=== PATIENT | male | born 1955 | race Caucasian/White ===

== ENCOUNTER 2018-04-26 22:39 | Observation (INO) ==
[2018-04-26] MEDS ORDERED: Tdap (Boostrix) Vaccine 0.5 ML SYRINGE IM ONE (22:59)
--- NOTE | 2018-04-26 23:11 | Emergency Department Note ---
Disposition Clinical Impression: Fall, Closed head injury, Slurred speech Disposition: Admitted As Inpatient Condition: Good General Adult HPI - General Chief complaint: ED Neuro Symptoms/Deficit Stated complaint: Lac To head, Possible LOC Time Seen by Provider: 04/26/18 22:50 Source: patient Limitations: altered mental status - History of Present Illness Pain Scale: 0 - Related Data Home Medications Medication Instructions Recorded Confirmed Allopurinol [Zyloprim 100 MG] 100 mg PO DAILY 12/08/15 12/08/15 Aspirin 325 mg PO DAILY 12/08/15 12/08/15 Atorvastatin [Lipitor] 40 mg PO HS 12/08/15 12/08/15 Colchicine [Colcrys] 1 - 2 tab PO DAILY 12/08/15 12/08/15 Flaxseed Oil [Irving-3 Flaxseed Oil] 100 mg PO DAILY 12/08/15 12/08/15 Mometasone Furoate [Elocon] 15 gm TP BID 12/08/15 12/08/15 Niacin [Niacor] 500 mg PO DAILY 12/08/15 12/08/15 PredniSONE [Deltasone] 20 mg PO DAILY 12/08/15 12/08/15 Tramadol HCl [Tramadol HCl ER] 100 mg PO DAILY 12/08/15 12/08/15 Allergies Allergy/AdvReac Type Severity Reaction Status Date / Time cinnamon [Cinnamon] AdvReac Rash Verified 04/27/18 00:39 Hydroxychloroquine AdvReac Rash Verified 04/27/18 00:39 [From Plaquenil] Past Medical History - Past Medical History Medical history: Reports: hyperlipidemia Psychiatric history: Reports: no psych history - Social History Smoking Status: Current every day smoker Smokeless Tobacco Status: No Alcohol use: Reports: none Drug use: Reports: none Physical Exam - General Limitations: altered mental status General appearance: alert Course Vital Signs Temperature 98.6 F 04/26/18 22:44 Pulse Rate 73 04/26/18 22:44 Respiratory Rate 20 04/26/18 22:44 Blood Pressure 113/65 04/26/18 22:44 O2 Sat by Pulse Oximetry 96 04/26/18 22:44 Temperature 97.5 F L 04/27/18 07:19 Pulse Rate 72 04/27/18 07:19 Respiratory Rate 15 04/27/18 07:19 Blood Pressure 147/75 04/27/18 07:19 O2 Sat by Pulse Oximetry 97 04/27/18 07:19 Oxygen Delivery Oxygen Delivery Room Air Medical Decision Making - Lab Data Result diagrams: 04/26/18 22:51 04/26/18 22:51 Lab Results 04/26/18 04/26/18 04/26/18 Range/Units 22:51 22:51 22:51 WBC 15.5 H (4.3-11.1) K/mcL RBC 4.27 (4.19-5.50) M/mcL Hgb 13.9 (12.9-16.9) g/dL Hct 41.6 (37.5-50.1) % MCV 97.4 (83.0-100.0) fL MCH 32.6 (28.0-33.3) pg MCHC 33.4 (31.6-35.5) g/dL RDW 14.9 H (11.5-14.5) % Plt Count 265 (140-400) K/mcL MPV 10.5 (9.4-12.4) fL Immature Gran % 0.4 (0-4) % Seg Neutrophils % 60.7 % Lymphocytes % 30.3 % Monocytes % 7.7 % Eosinophils % 0.5 % Basophils % 0.4 % Neutrophils # 9.4 H (1.6-8.9) K/mcL Lymphocytes # 4.7 H (0.6-4.6) K/mcL Monocytes # 1.2 (0.0-1.3) K/mcL Eosinophils # 0.1 (0.0-0.6) K/mcL Basophils # 0.1 (0.0-0.2) K/mcL PT 11.2 (9.4-12.1) Seconds INR 1.0 APTT 30.6 (26.0-36.0) Seconds Sodium 137 (136-145) mEq/L Potassium 3.4 L (3.5-5.1) mEq/L Chloride 106 (98-107) mEq/L Carbon Dioxide 21 L (23-29) mEq/L BUN 14 (8-23) mg/dL Creatinine 0.93 (0.70-1.30) mg/dL Est GFR ( Amer) > 60 (> 60) Est GFR (Non-Af Amer) > 60 (> 60) BUN/Creatinine Ratio 15 (6-26) Glucose 126 H (70-105) mg/dL POC Glucose (70-99) mg/dL Calculated Osmolality 286 (280-300) Calcium 8.6 (8.6-10.3) mg/dL Troponin I < 0.03 (< 0.04) ng/mL Ethyl Alcohol (Less than 10) mg/dL 04/26/18 04/26/18 Range/Units 22:52 23:06 WBC (4.3-11.1) K/mcL RBC (4.19-5.50) M/mcL Hgb (12.9-16.9) g/dL Hct (37.5-50.1) % MCV (83.0-100.0) fL MCH (28.0-33.3) pg MCHC (31.6-35.5) g/dL RDW (11.5-14.5) % Plt Count (140-400) K/mcL MPV (9.4-12.4) fL Immature Gran % (0-4) % Seg Neutrophils % % Lymphocytes % % Monocytes % % Eosinophils % % Basophils % % Neutrophils # (1.6-8.9) K/mcL Lymphocytes # (0.6-4.6) K/mcL Monocytes # (0.0-1.3) K/mcL Eosinophils # (0.0-0.6) K/mcL Basophils # (0.0-0.2) K/mcL PT (9.4-12.1) Seconds INR APTT (26.0-36.0) Seconds Sodium (136-145) mEq/L Potassium (3.5-5.1) mEq/L Chloride (98-107) mEq/L Carbon Dioxide (23-29) mEq/L BUN (8-23) mg/dL Creatinine (0.70-1.30) mg/dL Est GFR ( Amer) (> 60) Est GFR (Non-Af Amer) (> 60) BUN/Creatinine Ratio (6-26) Glucose (70-105) mg/dL POC Glucose 115 H (70-99) mg/dL Calculated Osmolality (280-300) Calcium (8.6-10.3) mg/dL Troponin I (< 0.04) ng/mL Ethyl Alcohol 292 H (Less than 10) mg/dL Attestation Statement - Attestation Attestation: I examined this patient and my medical decision-making was reviewed with the Resident Physician. I agree with the documented findings, disposition and treatment plan as described except to the extent set forth below. [id number] time provided Patient arrives with altered mental status. He admits to drinking alcohol tonight. He sustained a mechanical fall. Stroke alert was activated upon arrival
[2018-04-26 23:15] LABS: Basophils # 0.1 K/mcL (0.0-0.2); Basophils % 0.4 %; Eosinophils # 0.1 K/mcL (0.0-0.6); Eosinophils % 0.5 %; Hematocrit 41.6 % (37.5-50.1); Hemoglobin 13.9 g/dL (12.9-16.9); Immature Granulocytes % 0.4 % (0-4); Lymphocytes # 4.7 K/mcL (0.6-4.6); Lymphocytes % 30.3 %; Mean Corpuscular HGB Conc 33.4 g/dL (31.6-35.5); Mean Corpuscular Hemoglobin 32.6 pg (28.0-33.3); Mean Corpuscular Volume 97.4 fL (83.0-100.0); Mean Platelet Volume 10.5 fL (9.4-12.4); Monocytes # 1.2 K/mcL (0.0-1.3); Monocytes % 7.7 %; Neutrophils # 9.4 K/mcL (1.6-8.9); Platelet Count 265 K/mcL (140-400); Red Blood Count 4.27 M/mcL (4.19-5.50); Red Cell Distribution Width 14.9 % (11.5-14.5); Segmented Neutrophils % 60.7 %
[2018-04-26 23:21] LABS: Prothrombin Time 11.2 Seconds (9.4-12.1)
[2018-04-26 23:23] LABS: Activated Partial Thrombo Time 30.6 Seconds (26.0-36.0)
[2018-04-26] MEDS ORDERED: Isovue-370 500 ML INFUS..BTL IV ONE (23:23)
--- NOTE | 2018-04-26 23:23 | Emergency Department Note ---
Disposition Clinical Impression: Slurred speech Fall Qualifiers: Encounter type: initial encounter Qualified Code(s): W19.XXXA - Unspecified fall, initial encounter Closed head injury Qualifiers: Encounter type: initial encounter Qualified Code(s): S09.90XA - Unspecified injury of head, initial encounter Disposition: Admitted As Inpatient Condition: Good Referrals: Katya Reed MD [Non-Partnered Physician] - Forms: ED Satisfaction Letter Time of Disposition: 01:51 General Adult HPI - General Stated complaint: Lac To head, Possible LOC Time Seen by Provider: 04/26/18 22:50 Nursing Notes Reviewed: Yes Vital Signs Reviewed: Yes - History of Present Illness HPI Narrative: Male patient presenting to the emergency department by EMS. He was at home with his family consuming about 6-7 beers whenever he went inside and had a fall with a syncopal event afterwards. The son found him in the floor. States he was hard to arouse. He has been confused ever since. Slurring his speech. They state that her several minutes were they could not get him to respond however he did have a pulse he was breathing normally. They state that he did have some mild circumflex speech prior to this fall. However currently they state that the left side of his face does appear to be more droopy than the right. He has good nasolabial folds bilaterally. The patient knows his name however he is asking questions repetitively. He does not appear to be in any distress at this time. He does have a laceration to the left occipital region. No other signs of trauma to his body. Pupils are equal and reactive. He is able to follow my finger appropriately. Has good finger to nose. Cranial nerves II through XII are intact. He has good motion of all 4 extremities. The only neurodeficit that I can appreciate is he does have some slurred speech and repetitive questioning. Patient does smell of alcohol at this time. She will alert was called. Patient was sent to CT and basic labs were performed. - Related Data Home Medications Medication Instructions Recorded Confirmed Allopurinol [Zyloprim 100 MG] 100 mg PO DAILY 12/08/15 12/08/15 Aspirin 325 mg PO DAILY 12/08/15 12/08/15 Atorvastatin [Lipitor] 40 mg PO HS 12/08/15 12/08/15 Colchicine [Colcrys] 1 - 2 tab PO DAILY 12/08/15 12/08/15 Flaxseed Oil [Muse-3 Flaxseed Oil] 100 mg PO DAILY 12/08/15 12/08/15 Mometasone Furoate [Elocon] 15 gm TP BID 12/08/15 12/08/15 Niacin [Niacor] 500 mg PO DAILY 12/08/15 12/08/15 PredniSONE [Deltasone] 20 mg PO DAILY 12/08/15 12/08/15 Tramadol HCl [Tramadol HCl ER] 100 mg PO DAILY 12/08/15 12/08/15 Allergies Allergy/AdvReac Type Severity Reaction Status Date / Time cinnamon [Cinnamon] AdvReac Rash Verified 04/27/18 00:39 Hydroxychloroquine AdvReac Rash Verified 04/27/18 00:39 [From Plaquenil] Limitations: ROS unobtainable due to patients medical condition Past Medical History - Past Medical History Attestation: Yes The following information was validated with the patient. Source: patient Psychiatric history: Reports: no psych history - Social History Smoking Status: Never smoker Smokeless Tobacco Status: No Alcohol use: Reports: none Drug use: Reports: none Physical Exam - General Limitations: altered mental status (Added of questioning.) General appearance: alert, in no apparent distress - Head Head exam: normocephalic, normal inspection, other (Small hematoma to the right posterior aspect of his head. Overlying abrasion.) - Eye Eye exam: Present: normal appearance, PERRL, EOMI - ENT ENT exam: normal exam, normal oropharynx, mucous membranes moist - Neck Neck exam: Present: normal inspection, full ROM, trachea midline - Chest Chest inspection: Present: normal inspection, symmetric chest wall rise - Respiratory Respiratory exam: Present: normal lung sounds bilaterally. Absent: respiratory distress, accessory muscle use - Cardiovascular Cardiovascular exam: Present: regular rate, normal rhythm, normal heart sounds - Abdominal Exam Abdominal exam: Present: soft, Non-Tender. Absent: tenderness, distention, guarding, rebound, rigidity, organomegaly, Serrano's sign, Rovsing's sign, tenderness at McBurney's Point - Extremities Exam Extremities exam: Present: normal inspection, full ROM, other (No extremity weakness.). Absent: tenderness, pedal edema - Expanded Lower Extremity Exam Hip/Pelvis exam: Present: normal inspection, full ROM - Back Exam Back exam: Present: normal inspection, full ROM. Absent: tenderness - Neurological Exam Neurological exam: Present: alert, other (Somewhat confused. Does have repetitive questioning.) - Psychiatric Psychiatric exam: Present: normal affect, normal mood - Skin Skin exam: Present: warm, dry, intact, normal color. Absent: rash, cyanosis Course Course Narrative: Patient does have slurred speech. No focal deficits to his extremity. Has good nasolabial folds and forehead creases. However the patient's family is concerned that the left side of his face could be drooping more than normal. CT of his head was performed with no signs of acute infarct or bleeding. CTA of his head and neck were not concerning for immediate stenosis issue. Patient is still mildly confused. His alcohol level is greater than 250. Patient returned from CTA of his head and neck and was more aware of his surroundings. He was alert and oriented 3 at that time. He denied any midline tenderness to cervical spine. He has no pain on motion of his neck. Cervical spine images were negative. C-collar was removed at that time. We will admit patient to the hospital for further neuro evaluation. Patient and family are agreeable to this. Vital Signs Temperature 98.6 F 04/26/18 22:44 Pulse Rate 73 04/26/18 22:44 Respiratory Rate 20 04/26/18 22:44 Blood Pressure 113/65 04/26/18 22:44 O2 Sat by Pulse Oximetry 96 04/26/18 22:44 Temperature 98.6 F 04/26/18 23:00 Pulse Rate 78 04/26/18 23:30 Respiratory Rate 19 04/26/18 23:30 Blood Pressure 126/72 04/26/18 23:30 O2 Sat by Pulse Oximetry 98 04/26/18 23:30 Oxygen Delivery Oxygen Delivery Room Air Medical Decision Making - Medical Records Medical records reviewed: Yes I reviewed the patient's medical records. - Lab Data Lab results reviewed: Yes I reviewed the patient's lab results. Result diagrams: 04/26/18 22:51 04/26/18 22:51 Lab Results 04/26/18 04/26/18 04/26/18 Range/Units 22:51 22:51 22:51 WBC 15.5 H (4.3-11.1) K/mcL RBC 4.27 (4.19-5.50) M/mcL Hgb 13.9 (12.9-16.9) g/dL Hct 41.6 (37.5-50.1) % MCV 97.4 (83.0-100.0) fL MCH 32.6 (28.0-33.3) pg MCHC 33.4 (31.6-35.5) g/dL RDW 14.9 H (11.5-14.5) % Plt Count 265 (140-400) K/mcL MPV 10.5 (9.4-12.4) fL Immature Gran % 0.4 (0-4) % Seg Neutrophils % 60.7 % Lymphocytes % 30.3 % Monocytes % 7.7 % Eosinophils % 0.5 % Basophils % 0.4 % Neutrophils # 9.4 H (1.6-8.9) K/mcL Lymphocytes # 4.7 H (0.6-4.6) K/mcL Monocytes # 1.2 (0.0-1.3) K/mcL Eosinophils # 0.1 (0.0-0.6) K/mcL Basophils # 0.1 (0.0-0.2) K/mcL PT 11.2 (9.4-12.1) Seconds INR 1.0 APTT 30.6 (26.0-36.0) Seconds Sodium 137 (136-145) mEq/L Potassium 3.4 L (3.5-5.1) mEq/L Chloride 106 (98-107) mEq/L Carbon Dioxide 21 L (23-29) mEq/L BUN 14 (8-23) mg/dL Creatinine 0.93 (0.70-1.30) mg/dL Est GFR ( Amer) > 60 (> 60) Est GFR (Non-Af Amer) > 60 (> 60) BUN/Creatinine Ratio 15 (6-26) Glucose 126 H (70-105) mg/dL POC Glucose (70-99) mg/dL Calculated Osmolality 286 (280-300) Calcium 8.6 (8.6-10.3) mg/dL Troponin I < 0.03 (< 0.04) ng/mL Ethyl Alcohol (Less than 10) mg/dL 04/26/18 04/26/18 Range/Units 22:52 23:06 WBC (4.3-11.1) K/mcL RBC (4.19-5.50) M/mcL Hgb (12.9-16.9) g/dL Hct (37.5-50.1) % MCV (83.0-100.0) fL MCH (28.0-33.3) pg MCHC (31.6-35.5) g/dL RDW (11.5-14.5) % Plt Count (140-400) K/mcL MPV (9.4-12.4) fL Immature Gran % (0-4) % Seg Neutrophils % % Lymphocytes % % Monocytes % % Eosinophils % % Basophils % % Neutrophils # (1.6-8.9) K/mcL Lymphocytes # (0.6-4.6) K/mcL Monocytes # (0.0-1.3) K/mcL Eosinophils # (0.0-0.6) K/mcL Basophils # (0.0-0.2) K/mcL PT (9.4-12.1) Seconds INR APTT (26.0-36.0) Seconds Sodium (136-145) mEq/L Potassium (3.5-5.1) mEq/L Chloride (98-107) mEq/L Carbon Dioxide (23-29) mEq/L BUN (8-23) mg/dL Creatinine (0.70-1.30) mg/dL Est GFR ( Amer) (> 60) Est GFR (Non-Af Amer) (> 60) BUN/Creatinine Ratio (6-26) Glucose (70-105) mg/dL POC Glucose 115 H (70-99) mg/dL Calculated Osmolality (280-300) Calcium (8.6-10.3) mg/dL Troponin I (< 0.04) ng/mL Ethyl Alcohol 292 H (Less than 10) mg/dL - Radiology Data Radiology results reviewed: Yes I reviewed the patient's radiology results. Head CT 04/26/18 22:51 IMPRESSION: No acute intracranial abnormality. Chronic left maxillary sinusitis. Findings were discussed with Dr. Toscano At 11:14 pm on 04/26/2018. D/ / 04/26/2018 23:19:28 Bridger Woody / rolando Interpreting Provider: Bridger Woody - EKG Data EKG #1 EKG attestation: Yes I reviewed and interpreted this EKG. EKG results narrative: Normal sinus rhythm at a rate of 75. CO interval is 156. Respirations 110. QT is 384. QTC is 429. No signs of acute ischemia. No significant change from previous EKG dated 11/25/2015.
[2018-04-26 23:37] LABS: BUN/Creatinine Ratio 15 (6-26); Blood Urea Nitrogen 14 mg/dL (8-23); Calcium 8.6 mg/dL (8.6-10.3); Carbon Dioxide 21 mEq/L (23-29); Chloride 106 mEq/L (98-107); Glucose 126 mg/dL (70-105); Osmolality,Calculated 286 (280-300); Potassium 3.4 mEq/L (3.5-5.1); Sodium 137 mEq/L (136-145); Troponin I < 0.03 ng/mL (< 0.04); eGFR For Non-African Americans > 60 (> 60)
[2018-04-27] MEDS ORDERED: Lidocaine/EPI 1:100k 1% 30 ML VIAL INFILT ONE (00:39)
[2018-04-27] MEDS ORDERED: Naloxone 0.4 MG/ML INJ IVP PRN (02:25)
[2018-04-27] MEDS ORDERED: 0.9 % Sodium Chloride 1,000 ML IVC SCH (02:30)
[2018-04-27] MEDS: *HR* Heparin 5,000 UNIT/ML VIAL SQ SCH ×2 (05:37→13:07)
--- NOTE | 2018-04-27 06:17 | Internal Med History&Physical ---
Date of Encounter: 04/28/18 Time of Encounter: 06:02 Internal Medicine - H&P: HPI Chief complaint: Syncope History of present illness: Mr. Espinoza is a 62 year old male with a past medical history of coronary artery disease status post CABG x2 in 2011, hyperlipidemia, arthritis and recent surgery on his left ear who presents after a unwitnessed syncopal episode. During my initial assessment the patient was alert and oriented 3 however does not recall much of the events shortly before his syncopal episode. Patient last recalls having a barbecue at home with his family. Remainder of the history was obtained from ED records. Per son, patient was found on the floor, difficult to arouse and has since been confused. Family noted slurred speech and left-sided facial droop more than the right. It was also noted to be repetitively asking the same questions. It is reported the patient had consumed 6-7 beers prior to the event. Initial assessment in the ED was negative for any focal neurological deficits. He was noticed to have a strong smell of alcohol which was confirmed when I saw the patient. CTA of the head and neck were performed which were unremarkable. Of note, the patient does endorse a previous syncopal episode approximately a year ago and did have a implantable loop recorder placed which is currently still in place in the left anterior chest wall. Patient also reports a recent bout of diarrhea for the past 2 weeks which he recently improved in the past few days. He denies any fever, chills, nausea, vomiting, abdominal pain or shortness of breath. Laboratory findings significant for a mild leukocytosis of 15. Normal troponin and EKG shows no significant changes from previous EKG. Past Med Surg Social Fam HX - Past Medical History Medical history: hyperlipidemia Psychiatric history: no psych history - Past Surgical History Additional surgical history: ear - Social History Smoking Status: Never smoker Smokeless Tobacco Status: No Alcohol use: none Drug use: none Internal Medicine - H&P: Meds Allopurinol [Zyloprim 100 MG] 100 mg PO DAILY 04/27/18 [History] Allopurinol [Zyloprim 300 MG] 300 mg PO DAILY 04/27/18 [History] Aspirin [Lo-Dose Aspirin EC] 81 mg PO DAILY 04/27/18 [History] Atorvastatin [Lipitor] 40 mg PO HS 04/27/18 [History] Colchicine [Colcrys] 0.6 - 1.2 mg PO DAILY PRN 04/27/18 [History] DULoxetine [Cymbalta] 90 mg PO DAILY 04/27/18 [History] 3 Allergy/AdvReac Type Severity Reaction Status Date / Time cinnamon [Cinnamon] AdvReac Rash Verified 04/27/18 00:39 Hydroxychloroquine AdvReac Rash Verified 04/27/18 00:39 [From Plaquenil] All Systems PM: A 10-system review of systems was performed and is negative for pertinent findings except as documented above in the HPI. - Constitutional Constitutional: no chills, no fever(s), no night sweats - EENT Eyes: no change in vision, no discharge, no pain, no photophobia Ears: no ear discharge, no ear pain, no tinnitus Nose, mouth and throat: no dysphagia, no nasal discharge, no neck pain, no sore throat - Cardiovascular Cardiovascular ROS IM: no chest pain, no diaphoresis, no dyspnea, no lightheadedness, no palpitations, no syncope - Respiratory Respiratory: no cough, no dyspnea, no wheezing, no excessive phlegm production - Gastrointestinal Gastrointestinal: no abdominal pain, no diarrhea, no hematemesis, no hematochezia, no melena, no nausea, no vomiting - Musculoskeletal Musculoskeletal ROS IM: no numbness, no tingling - Integumentary Integumentary IM: no rash, no unusual bruising - Neurological Neurological ROS: no confusion, no convulsions, no focal weakness, no numbness, no tingling, no tremor(s) - Hematologic/Lymphatic Hematologic/Lymphatic: no easy bruising - Constitutional Vitals: Temp Pulse Resp BP Pulse Ox 97.4 F L 73 15 137/73 97 04/27/18 03:50 04/27/18 03:50 04/27/18 03:50 04/27/18 03:50 04/27/18 03:50 Exam: General: Alert and oriented 3; in no acute distress Skin:Normal color, no rash, no lesions. HEENT:EOM, pupils equal, round and reactive. Cardiovascular:Normal S1 & S2, no rubs, murmurs or gallops. No JVD. Pulse regular. Lungs:Normal breath sounds, no wheezes or crackles. Abdomen:Soft, non-tender, no rigidity. Extremities:No deformity, no edema or tenderness, no joint swelling or clubbing. Neurological:Normal cognition and he: Cranial nerves II through XII intact; no evidence of dysmetria; 5 out of 5 muscle strength in both the upper and lower extremities; Babinski downgoing laterally. Pulses:Carotid and radial pulses normal +2. Rest of the physical exam is non contributory Internal Med - H&P Results - Labs CBC & Chem 7: 04/27/18 05:32 04/27/18 05:32 - Assessment and plan (1) Syncope Status: Acute Assessment and plan: Unwitnessed syncope with reported slurred speech and facial droop according to family members. Differential diagnosis includes TIA versus stroke versus cardiogenic etiology versus possible alcohol intoxication. Avapro Blood Alcohol Level of 292. Patient Currently Alert Oriented 3 with and does not have any focal deficits. CTA of the head and neck were unremarkable. Of note patient has a implantable loop recorder in place. Unclear whether data can be obtained from this device to aid in determining cause of syncopal episode. EKG was reviewed and found to be unchanged from previous EKG with negative troponins on initial assessment. At this time we will continue patient on telemetry. Neuro checks every 2 hours. NPO. Echo and carotid duplex in the morning. Obtain MRI. Neurology and cardiology consult. Qualifiers: Syncope type: unspecified Qualified Code(s): R55 - Syncope and collapse (2) Leukocytosis Status: Acute Assessment and plan: Leukocytosis likely stress-induced in the setting of recent syncopal episode. No evidence of an infection. We will trend and monitor for now. Qualifiers: Leukocytosis type: unspecified Qualified Code(s): D72.829 - Elevated white blood cell count, unspecified (3) Coronary artery disease Status: Chronic Assessment and plan: History of coronary artery disease status post CABG in 2012. EKG unchanged from previous EKG with negative troponins. Continue telemetry. Qualifiers: Coronary Disease-Associated Artery/Lesion type: unspecified vessel or lesion type [place] vs. transplanted heart: [place] heart Associated angina: without angina Qualified Code(s): I25.10 - Atherosclerotic heart disease of [place] coronary artery without angina pectoris (4) DVT prophylaxis Status: Acute Assessment and plan: Subcutaneous heparin. - Time Spent With Patient Total time spent is greater than 50% in coordination of care (as documented) at patient's floor/unit and/or counseling patient:
[2018-04-27 07:27] LABS: Basophils # 0.1 K/mcL (0.0-0.2); Basophils % 0.5 %; Eosinophils # 0.1 K/mcL (0.0-0.6); Eosinophils % 0.8 %; Hematocrit 40.1 % (37.5-50.1); Hemoglobin 13.2 g/dL (12.9-16.9); Immature Granulocytes % 0.5 % (0-4); Lymphocytes # 3.6 K/mcL (0.6-4.6); Lymphocytes % 32.5 %; Mean Corpuscular HGB Conc 32.9 g/dL (31.6-35.5); Mean Corpuscular Hemoglobin 31.7 pg (28.0-33.3); Mean Corpuscular Volume 96.2 fL (83.0-100.0); Mean Platelet Volume 10.6 fL (9.4-12.4); Monocytes # 0.6 K/mcL (0.0-1.3); Monocytes % 5.6 %; Neutrophils # 6.7 K/mcL (1.6-8.9); Platelet Count 244 K/mcL (140-400); Red Blood Count 4.17 M/mcL (4.19-5.50); Red Cell Distribution Width 15.1 % (11.5-14.5); Segmented Neutrophils % 60.1 %
[2018-04-27 07:30] LABS: Alanine Aminotransferase 13 Units/L (7-52); Albumin 3.5 g/dL (3.5-5.7); Albumin/Globulin Ratio 1.4 (1.1-2.2); Alkaline Phosphatase 54 Units/L (34-104); Aspartate Amino Transferase 13 Units/L (13-39); BUN/Creatinine Ratio 15 (6-26); Bilirubin,Total 0.2 mg/dL (0.3-1.0); Blood Urea Nitrogen 11 mg/dL (8-23); Calcium 8.3 mg/dL (8.6-10.3); Carbon Dioxide 24 mEq/L (23-29); Chloride 110 mEq/L (98-107); Cholesterol 102 mg/dL (< 200); Globulin 2.5 g/dL (2.4-3.5); Glucose 108 mg/dL (70-105); HDL Cholesterol 17 mg/dL (40-59); LDL Cholesterol,Calculated 44 mg/dL (0-99); Magnesium 1.9 mg/dL (1.6-2.6); Osmolality,Calculated 294 (280-300); Potassium 3.6 mEq/L (3.5-5.1); Sodium 142 mEq/L (136-145); Triglycerides 206 mg/dL (< 150); eGFR For Non-African Americans > 60 (> 60)
--- NOTE | 2018-04-27 12:16 | Cardiology Consult Note ---
<Elisha Rebolledo - Last Filed: 04/27/18 12:13> Date of Encounter: 04/27/18 Time of Encounter: 09:00 Assessment and Plan (1) Syncope Status: Acute Per cardiology: -Presented with syncopal event. -TTE pending. -Has LOOP recorder. -ALso noted ETOH of 292. -Troponin negative. -No acute ECG changes. -No events on tele overnight. -TTE. -LOOP recorder interrogated, awaiting LOOP interrogation results. Qualifiers: Syncope type: unspecified Qualified Code(s): R55 - Syncope and collapse (2) Coronary artery disease Status: Chronic Per cardiology: -Known CAD s/p CABG 2011. -Follows with [facility] cardiology. -TTE pending. Qualifiers: Coronary Disease-Associated Artery/Lesion type: unspecified vessel or lesion type [place] vs. transplanted heart: [place] heart Associated angina: without angina Qualified Code(s): I25.10 - Atherosclerotic heart disease of [place] coronary artery without angina pectoris Discussion w patient/family: The assessment and plan as outlined above was discussed with the patient and/or family members who expressed understanding and agreement. All questions were answered. Thank you for involving us in the care of your patient. Please call with any questions. Discussed and reviewed with . History of Present Illness Consult date: 04/27/18 Requesting physician: Roxann Huang Consult reason: syncope Chief complaint: syncope History of present illness: Mr. Espinoza is a 62 year old male with a relevant past medical history of CAD s /p CABG 2011, HLD, depression, gout, syncope who presented to [facility] with complaints of syncope. Patient was at a cook out with family, when he walked inside. Patient was then found on ground by family. Reported loss of consciousness. However, patient is unclear. Of note, also noted to be intoxicated. Denies loss of bowel or bladder. Patient has LOOP recorder due to syncopal event last year. LOOP recorder followed by [facility] cardiology. Patient states no arrythmias have been detected on LOOP recorder so far. Past Med Surg Social Fam HX - Past Medical History Attestation: Yes The following information was validated with the patient. Source: patient, old records reviewed, obtained from family Medical history: coronary artery disease, hyperlipidemia Psychiatric history: no psych history - Past Surgical History Surgical History: coronary bypass (CABG) Additional surgical history: ear - Social History Smoking Status: Current every day smoker Smokeless Tobacco Status: No Alcohol use: occasionally, recent Drug use: none - Family History Mother Hx Family Cardiac Disorders: Yes Medications and Allergies Allopurinol [Zyloprim 100 MG] 100 mg PO DAILY 04/27/18 [History] Allopurinol [Zyloprim 300 MG] 300 mg PO DAILY 04/27/18 [History] Aspirin [Lo-Dose Aspirin EC] 81 mg PO DAILY 04/27/18 [History] Atorvastatin [Lipitor] 40 mg PO HS 04/27/18 [History] Colchicine [Colcrys] 0.6 - 1.2 mg PO DAILY PRN 04/27/18 [History] DULoxetine [Cymbalta] 90 mg PO DAILY 04/27/18 [History] 3 Allergy/AdvReac Type Severity Reaction Status Date / Time cinnamon [Cinnamon] AdvReac Rash Verified 04/27/18 00:39 Hydroxychloroquine AdvReac Rash Verified 04/27/18 00:39 [From Plaquenil] All Systems Review: The remainder of the systems were reviewed and are negative - Cardiovascular Cardiovascular: as per HPI - Neurological Neurological: syncope Physical Examination Vital Signs, Last 4 Hours Temp Pulse Resp BP Pulse Ox 04/27/18 11:58 98.2 F 67 20 157/82 98 04/27/18 09:30 97 General: Conversant, No Apparent Distress HEENT: Atraumatic, Normocephaly, Mucus Membranes Moist Neck: No JVD, Normal carotid pulses Cardiac: Reg Rate and Rhythm, Normal S1 and S2, No Murmur Lungs: Normal Breath Sounds, No Wheeze, Rales, Rhonchi Neuro: Alert and responsive, No focal deficits noted Abdomen: Soft, Non-Tender Skin: No rashes noted on visualized skin Musculoskeletal: No Chest Wall Tenderness Extremities: No Clubbing, No Cyanosis, No Edema, Normal Pulses Results 04/27/18 05:32 04/27/18 05:32 Lab Results Impressions Head CT 04/26/18 22:51 IMPRESSION: No acute intracranial abnormality. Chronic left maxillary sinusitis. Findings were discussed with Dr. Toscano At 11:14 pm on 04/26/2018. D/ / 04/26/2018 23:19:28 Bridger marshall Interpreting Provider: Bridger Woody Cervical Spine CT 04/27/18 00:01 IMPRESSION: No acute abnormality of the cervical spine. D/ / Thuan Melendez MD / Thuan Melendez MD Interpreting Provider: Thuan Melendez MD Head CTA 04/27/18 00:01 IMPRESSION: Proximal left ICA 50% stenosis by NASCET criteria by irregular atheromatous plaques. Proximal right ICA stenosis of less than 50% by NASCET criteria by atheromatous plaques. Patent vertebral arteries. Major intracranial arteries are patent. Chronic left maxillary sinusitis. Right middle ear minimal soft tissue density, possibly otitis media but nonspecific. Dedicated CT temporal bones could be obtained for further characterization as clinically warranted. D/ / 04/27/2018 05:35:34 Bridger marshall Interpreting Provider: Bridger Woody Neck CTA 04/27/18 00:01 IMPRESSION: Proximal left ICA 50% stenosis by NASCET criteria by irregular atheromatous plaques. Proximal right ICA stenosis of less than 50% by NASCET criteria by atheromatous plaques. Patent vertebral arteries. Major intracranial arteries are patent. Chronic left maxillary sinusitis. Right middle ear minimal soft tissue density, possibly otitis media but nonspecific. Dedicated CT temporal bones could be obtained for further characterization as clinically warranted. D/ / 04/27/2018 05:35:34 Bridger marshall Interpreting Provider: Bridger Woody Active Medications Heparin Sodium (Porcine) (Heparin) 5,000 unit SQ Q8HCO [facility] Stop: 10/27/18 06:01 Last Admin: 04/27/18 05:37 Dose: 5,000 unit Sodium Chloride (0.9 % Sodium Chloride) 1,000 mls @ 75 mls/hr IVC .[id number] [facility] Stop: 04/28/18 05:09 Last Admin: 04/27/18 05:37 Dose: 75 mls/hr Naloxone HCl (Narcan) 0.4 mg IVP Q2MIN PRN PRN Reason: SEE COMMENTS Stop: 10/27/18 02:26 Laboratory Tests 04/26/18 04/26/1804/27/18 22:51 22:52 05:32 Hgb 13.2 Creatinine Troponin I < 0.03 Ethyl Alcohol 292 H 04/27/18 05:32 Hgb Creatinine 0.72 Troponin I Ethyl Alcohol - Imaging and Cardiology Chest Xray: report reviewed Echo: pending - EKG Interpretation EKG results cardiology: personally reviewed (ECG with SR, HR 75. Non-specific ST and T wave abnormality noted, similar to previous.), other (Telemetry reviewed with average HR previous 12 hours noted to be 70, SR. PVCs, PACs, blocked PACs noted.) Consult Discharge Plan - Plan Instructions: Syncope (DC), Fall Prevention (DC) Referrals: NONE,PCP [Primary Care Provider] - <Radha Thomas - Last Filed: 04/27/18 17:17> Date of Encounter: 04/27/18 - Attending Attestation Patient was seen and evaluated independently by me. Findings, assessment and plan were discussed at length with patient, questions answered. Agree with nurse practitioner's documentation. Addition as follows, 62 yo CM ho CABG 2011, HLD, [place] 2016 with EtOH s/p loop recorder, gout, depression. P/w syncope and EtOH intoxication w/o trauma. No angina, vasovago episodes or evidence of subclavian steal. No pause on carotid massage test by me. ECG, tele not revealing, loop recorder check pending Echo read by me revealed normal LV and RV function, no valvular abn. A: syncope, EtOH intoxication P: loop recorder check am due to [employer] system down outpatient cardiology f/u Radha Thomas MD, PhD Assessment and Plan Discussion w patient/family: The assessment and plan as outlined above was discussed with the patient and/or family members who expressed understanding and agreement. All questions were answered. Thank you for involving us in the care of your patient. Please call with any questions. History of Present Illness History of present illness: Mr. Espinoza is a 62 year old male All Systems Review: The remainder of the systems were reviewed and are negative Physical Examination Vital Signs, Last 4 Hours Temp Pulse Resp BP Pulse Ox 04/27/18 15:18 98.2 F 61 16 175/77 98 Results 04/27/18 05:32 04/27/18 05:32 Lab Results 04/27/18 04/27/18 05:32 05:32 WBC 11.1 Hgb 13.2 Hct 40.1 Plt Count 244 Sodium 142 Potassium 3.6 Chloride 110 H Carbon Dioxide 24 BUN 11 Creatinine 0.72 Glucose 108 H Calcium 8.3 L Magnesium 1.9 Total Bilirubin 0.2 L AST 13 ALT 13 Alkaline Phosphatase 54
[2018-04-27] MEDS ORDERED: Acetaminophen 325 MG TABLET PO PRN (12:30)
[2018-04-27] MEDS ORDERED: Colchicine 0.6 MG TABLET PO PRN (12:55)
[2018-04-27 15:19] VITALS: BP 175/77
--- NOTE | 2018-04-27 16:15 | Neurology - Consult Note ---
Date of Encounter: 04/27/18 Time of Encounter: 16:07 Assessment and Plan (1) Fall Current Visit: Yes Status: Acute Patient at this time is back to his normal baseline functioning. I suspect that we simply dealing with a case of alcohol intoxication, he subsequently fell and suffered a cerebral concussion. See no evidence to suspect cerebrovascular event. I would not expect a stroke to cause unconsciousness unless it is tremendously large one. I will defer further syncope workup to cardiology. There is no reason to suspect a seizure here. He may discharge him at your discretion. No further imaging or testing is necessary. Qualifiers: Encounter type: initial encounter Qualified Code(s): W19.XXXA - Unspecified fall, initial encounter History of Present Illness HPI: The chart was reviewed, the patient was seen and examined personally. Mr. Espinoza is a 62 year old male is being seen for neurologic evaluation secondary to ALTERED mental status. On the day of admission he had been spending time with his family at home having a barbecue. He admits that he had several bruises. Apparently his son heard a noise in another room and came in to find his father had fallen. Apparently he struck the right back part of his head during the fall. Afterwards he was dazed and confused. He never lost consciousness. There was no generalized tonic-clonic seizure activity. There is a question of facial droop and his speech was slurred however he had been intoxicated. Apparently he has a loop recorder that was placed at the [facility] secondary to an episode of syncope which occurred last year. CTA scan of the neck reveals 60% stenosis of the right internal carotid artery and 50% stenosis of the left. There is no evidence of narrowing of the vertebral arteries. He is back to his normal baseline status. His blood alcohol level upon admission was 292. CT scan of the head was obtained and was negative. I did review the scan personally. Past Med Surg Social Fam HX - Past Medical History Medical history: coronary artery disease, hyperlipidemia Psychiatric history: no psych history - Past Surgical History Surgical History: coronary bypass (CABG) Additional surgical history: ear - Social History Smoking Status: Current every day smoker Smokeless Tobacco Status: No Alcohol use: occasionally, recent Drug use: none - Family History Mother Hx Family Cardiac Disorders: Yes Medications and Allergies Allopurinol [Zyloprim 100 MG] 100 mg PO DAILY 04/27/18 [History] Allopurinol [Zyloprim 300 MG] 300 mg PO DAILY 04/27/18 [History] Aspirin [Lo-Dose Aspirin EC] 81 mg PO DAILY 04/27/18 [History] Atorvastatin [Lipitor] 40 mg PO HS 04/27/18 [History] Colchicine [Colcrys] 0.6 - 1.2 mg PO DAILY PRN 04/27/18 [History] DULoxetine [Cymbalta] 90 mg PO DAILY 04/27/18 [History] 3 Allergy/AdvReac Type Severity Reaction Status Date / Time cinnamon [Cinnamon] AdvReac Rash Verified 04/27/18 00:39 Hydroxychloroquine AdvReac Rash Verified 04/27/18 00:39 [From Plaquenil] All Systems: The remainder of the systems were reviewed and are negative Review of Systems: The balance of the systems review is negative Physical Examination - Vital Signs Vital Signs: Initial Vital Signs Temp Pulse Resp BP Pulse Ox 98.6 F 73 20 113/65 96 04/26/18 22:44 04/26/18 22:44 04/26/18 22:44 04/26/18 22:44 04/26/18 22:44 - Neurologic Detailed motor examination: full strength in all major muscle groups Motor examination - right side: 5/5: deltoids, biceps, triceps, wrist flexion, wrist extension, anesthesiology technologist, hip flexors, tibialis Anterior, quadriceps, toe extension (EHL), plantarflexion Motor examination - left side: 5/5: deltoids, biceps, triceps, wrist flexion, wrist extension, hip flexors, anesthesiology technologist, quadriceps, tibialis Anterior, toe extension (EHL), plantarflexion Mental Status Examination: awake, alert, oriented to person, oriented to place, oriented to time, follows commands appropriately, answers questions appropriately, no agnosia, no aphasia, no aproxia Cranial nerve examination: PERRL, EOMI, visual butcher intact, corneal reflexes brisk symmetrically, sensory to face intact, mastication intact, no facial asymmetry is present, no dysarthria, hearing is intact symmetrically, soft palate elevates bilaterally upon phonation, gag reflex intact, flexes SCM and trapezius muscles symmetrically with full power, tongue protrudes midline, no atrophy or facial fasiculations present Cerebellar examination: no dysmetria, performs finger to nose and heel to rose symmetrically without ataxia, no gait ataxia, no truncal ataxia, no difficulty with rapid alternating movements Results - Laboratory Findings CBC and BMP: 04/27/18 05:32 04/27/18 05:32 Abnormal lab findings: Abnormal lab results RBC 4.17 M/mcL (4.19-5.50) L 04/27/18 05:32 RDW 15.1 % (11.5-14.5) H 04/27/18 05:32 Chloride 110 mEq/L (98-107) H 04/27/18 05:32 Glucose 108 mg/dL (70-105) H 04/27/18 05:32 Calcium 8.3 mg/dL (8.6-10.3) L 04/27/18 05:32 Total Bilirubin 0.2 mg/dL (0.3-1.0) L 04/27/18 05:32 Serum Total Protein 6.0 g/dL (6.4-8.9) L 04/27/18 05:32 Triglycerides 206 mg/dL (< 150) H 04/27/18 05:32 VLDL Cholesterol, Calc 41 mg/dL (< 31) H 04/27/18 05:32 HDL Cholesterol 17 mg/dL (40-59) L 04/27/18 05:32 Cholesterol/HDL Ratio 6.0 (0-4.9) H 04/27/18 05:32 Ethyl Alcohol 292 mg/dL (Less than 10) H 04/26/18 22:52 Consult Discharge Plan - Plan Referrals: NONE,PCP [Primary Care Provider] -
--- NOTE | 2018-04-27 16:21 | Discharge Summary ---
- NOTES TO OUTPATIENT PROVIDER Notes to Outpatient Provider: Patient was admitted for concern of possible stroke, presented with slurred speech and ? Left-sided facial droop. However, this occurred in the setting of his EtOH level being 292. By the morning, he was already A&O x 3 without any neurological deficits and back to his baseline. He has LOOP recorder that is to be reported back to [facility] tomorrow for the workup of syncope. MRI was initially ordered but since his symptoms and presentations were not very suggestive of any cerebral vascular accident, it was discontinued and patient was discharged. He was advised to return to the ED if new neuro deficits (without EtOH) occur. Orders not resulted at time of discharge: Pending orders 04/27/18 07:00 MR head/brain wo con [MR] Routine Date of Encounter: 04/27/18 Time of Encounter: 15:00 - Discharge Diagnosis (1) Syncope Priority: Secondary Status: Acute Qualifiers: Syncope type: unspecified Qualified Code(s): R55 - Syncope and collapse (2) Coronary artery disease Priority: Secondary Status: Chronic Qualifiers: Coronary Disease-Associated Artery/Lesion type: unspecified vessel or lesion type [place] vs. transplanted heart: [place] heart Associated angina: without angina Qualified Code(s): I25.10 - Atherosclerotic heart disease of [place] coronary artery without angina pectoris (3) Leukocytosis Priority: Secondary Status: Acute Qualifiers: Leukocytosis type: unspecified Qualified Code(s): D72.829 - Elevated white blood cell count, unspecified (4) DVT prophylaxis Priority: Secondary Status: Acute (5) Intoxication Priority: Primary Status: Acute Hospital course: Mr. Espinoza is a 62 year old male with PMHx of CAD s/p CABG, HLD was admitted for concern of possible stroke, presented with slurred speech and ?Left-sided facial droop. However, this occurred in the setting of his EtOH level being 292. By the morning after his presentation, he was already A&O x 3 without any neurological deficits and back to his baseline. He has LOOP recorder that is to be reported back to [facility] tomorrow for the workup of syncope. MRI was initially ordered but since his symptoms and presentations were not very suggestive of any cerebral vascular accident, it was discontinued and patient was discharged. He was advised to return to the ED if new neuro deficits (without EtOH) occur. - Time Spent with Patient Total time spent providing and/or coordinating discharge services: - Discharge Medications Home Medications: Allopurinol [Zyloprim 100 MG] 100 mg PO DAILY 04/27/18 [History] Allopurinol [Zyloprim 300 MG] 300 mg PO DAILY 04/27/18 [History] Aspirin [Lo-Dose Aspirin EC] 81 mg PO DAILY 04/27/18 [History] Atorvastatin [Lipitor] 40 mg PO HS 04/27/18 [History] Colchicine [Colcrys] 0.6 - 1.2 mg PO DAILY PRN 04/27/18 [History] DULoxetine [Cymbalta] 90 mg PO DAILY 04/27/18 [History] Allergies/Adverse Reactions: 3 Allergy/AdvReac Type Severity Reaction Status Date / Time cinnamon [Cinnamon] AdvReac Rash Verified 04/27/18 00:39 Hydroxychloroquine AdvReac Rash Verified 04/27/18 00:39 [From Plaquenil] Date of admission: 04/27/18 01:36 Primary care physician: PCP NONE Consults: 04/27/18 02:29 Consult to Neurology [CONS] Routine Consulting Provider: [facility] Reason for Consult: Concern for Stroke vs TIA Call Completed: No 04/27/18 06:25 Consult to Cardiology [CONS] Routine Comment: Consulting Provider: [facility] Reason for Consult: Syncope. Patient has implanted loop recorder Call Completed: No 04/27/18 08:15 Consult to Occupational Therapy [CONS] Routine Comment: Evaluate, develop and implement POC Reason for Consult: evaluation for discharge planning Does patient have active BEDREST order?: No Is patient medically & hemodynamically stable?: Yes Consult to Physical Therapy [CONS] Routine Comment: Evaluate, develop and implement POC Reason for Consult: evaluation for discharge planning Does patient have active BEDREST order?: No Is patient medically & hemodynamically stable?: Yes - Constitutional Vitals: Temp Pulse Resp BP Pulse Ox 98.2 F 61 16 175/77 98 04/27/18 15:18 04/27/18 15:18 04/27/18 15:18 04/27/18 15:18 04/27/18 15:18 Exam: General: Alert and oriented, not in acute distress. HEENT:EOM, pupils equal, round and reactive. Cardiovascular:Normal S1 & S2, No JVD. Pulse regular. Lungs: clear to auscultation, no wheezes/rales Abdomen:Soft, non-tender, no rigidity. Extremities:No deformity or swelling Neurological:Normal cognition and motor skills. Non-focal. No cerebellar signs , Babinski's downgoing bilaterally. Pronator drift negative Skin:Normal color, no rash, no lesions. Pulses:Carotid and radial pulses normal +2. Rest of the physical exam is non contributory - Patient Status Disposition: Home, Self-Care Condition: Good Functional capacity at discharge: independent ambulation Overall status at discharge: patient is back to baseline - Discharge Instructions Instructions: Fall Prevention (DC) Follow Up With: NONE,PCP [Primary Care Provider] - - Diet and Activity Activity: resume usual activities as tolerated Diet: advance to your usual diet
[2018-04-28] MEDS ORDERED: Aspirin Enteric Coated 81 MG Tablet PO SCH (09:00)
--- NOTE | 2018-04-30 06:33 | Electrocardiograph Report ---
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
== END 2018-04-27 16:52 | disposition home or self-care (01) ==
LOC: EMEROOARM 22:39 → 3BNU 22:39 → SUATTDRO 04-27 01:36 → 3BNU 04-27 02:12
PROVIDERS: ADMIT Internal Medicine; ATTEND Internal Medicine